=== PATIENT | male | born 1970 | race Caucasian/White ===

== ENCOUNTER 2020-04-07 14:55 | Emergency (ER) | payer OTHER ==
[2020-04-07 15:55] LABS: BASOPHIL % 0.8 % (0.2-1.5); PLATELET COUNT 154 x10^3mcL (152-348); RED CELL DISTRIBUTION WIDTH 13.4 % (12.1-16.2)
[2020-04-07 16:51] LABS: CALCIUM 9.5 mg/dL (8.5-10.1); CARBON DIOXIDE 18.5 mmol/L (21-32); CHLORIDE SERUM 100 mmol/L (98-107); CREATININE SERUM 0.8 mg/dL (0.7-1.3); GFR1 > 60 mL/min; GLUCOSE SERUM 239 mg/dL (74-106); POTASSIUM SERUM 4.4 mmol/L (3.5-5.1); SODIUM SERUM 135 mmol/L (136-145)
[2020-04-07 16:58] LABS: ALBUMIN 4.3 g/dL (3.4-5.0); ALKALINE PHOSPHATASE 106 U/L (46-116); ALT/SGPT 46 U/L (16-63); AST/SGOT 27 U/L (15-37); BILIRUBIN TOTAL 0.7 mg/dL (0.20-1.00); TOTAL PROTEIN, SERUM 7.4 g/dL (6.4-8.2)
[2020-04-07 18:30] VITALS: BP 134/95
== END 2020-04-07 18:30 | disposition home or self-care (01) ==
LOC: ED 14:55
PROVIDERS: Student in an Organized Health Care Education/Training Program
DX: G45.4 Transient global amnesia (principal); E11.65 Type 2 diabetes mellitus with hyperglycemia; R41.0 Disorientation, unspecified; I10 Essential (primary) hypertension; E11.9 Type 2 diabetes mellitus without complications
CPT/HCPCS: J7030